=== PATIENT | female | born 1985 | race Two or more races ===

== ENCOUNTER 2020-12-05 13:52 | Emergency (ER) | payer MEDICAID ==
[~2020-12-05] VITALS: Ht 157.5 cm; Wt 56.7 kg
--- NOTE | 2020-12-05 14:08 | NUR ---
EKG IN TRIAGE.
--- NOTE | 2020-12-05 14:23 | NUR ---
PT BIB SELF VIA POV. PER PT SHE HAS HAD CHEST PAIN X2 WEEKS. PT IS A POOR HISTORIAN BUT STATES SHE THINKS SHE HAD A VALVE REPLACEMENT "OR SOME KIND OF HEART SURGERY". PT RESTING IN [place], MONITORING IN PLACE, EKG DONE IN TRIAGE, LINDA AT THIS TIME, [id number].
[2020-12-05 15:11] LABS: TROPONIN I < 0.015 ng/mL (0.000-0.045)
[2020-12-05 15:22] VITALS: BP 127/61
== END 2020-12-05 15:44 | disposition home or self-care (01) ==
LOC: ED 15:38
DX: R07.2 Precordial pain (principal); R07.89 Other chest pain
CPT/HCPCS: 36415; 71045; 84484; 85379; 93005; 99285